=== PATIENT | male | born 1980 | race Caucasian/White ===

== ENCOUNTER 2016-06-06 20:00 | Inpatient (IN) | payer MEDICARE, OTHER ==
--- NOTE | ~2016-06-06 | DS ---
Unit #: [id number] #: [id number] Patient: [facility]ANNER STEPHENSON [id number] [facility] [address] [place] [address] [id number] I MR#: [id number] NAME: TANNER STEPHENSON ROOM: P131 Age: 35 Sex: M Admission Date: 06/06/2016 : 1980 Discharge Date: 06/16/2016 Attending Physician: Joanna Escalante M.D. Primary Care Physician: Liza Richards M.D. DISCHARGE SUMMARY IDENTIFYING DATA Mr. Stephenson is a 35-year-old single disabled white male, who is a resident of [place], [place], and is known to us from previous encounter, was brought to the hospital accompanied by his mother. DISCHARGE DIAGNOSES Psychiatric: Schizoaffective disorder, bipolar type, most recent episode depressed, recurrent, moderate, without psychotic features. Medical: Hypertension and dyslipidemia. Stressors: Moderate psychosocial stressors. HISTORY OF PRESENT ILLNESS Please see initial psychiatric evaluation for details. PAST PSYCHIATRIC HISTORY Please see initial psychiatric evaluation for details. PAST MEDICAL HISTORY Please see initial psychiatric evaluation for details. HOSPITAL COURSE The patient was admitted to the adult psychiatric unit at [facility] br[facility] and was oriented to the hospital environment. Routine p.r.n. medications were initiated, and he was started back on his home medications and was closely monitored. He was initially seen to be withdrawn, anxious, and rather not functioning very well; however, he was polite and pleasant and cooperative with treatment recommendation and was taking the medications regularly and was tolerating them fairly well and was able to show a decent and therapeutic response with improvement in psychosis and as such, it was decided that he will be discharged home and will continue treatment on an outpatient basis. DISCHARGE MEDICATIONS Zyprexa 20 mg at bedtime and 10 mg in the morning for psychosis, Celexa 30 mg in the morning for depression, Remeron 15 mg at bedtime for depression, Lipitor 10 mg a day for dyslipidemia, Zestril 10 mg b.i.d. for hypertension, Protonix 40 mg a day for acid reflux, Glucophage 500 mg b.i.d. for diabetes. DISCHARGE CONDITION Stable. PROGNOSIS Unit #: [id number] #: [id number] Patient: TANNER STEPHENSON Fair. Dictated by... Irena Holman/jayden TD: 06/16/2016 23:28 JOB #: [id number] DISCHARGE SUMMARY Page 1 of 1 X Joanna Escalante MD DISCHARGE SUMMARY
--- NOTE | ~2016-06-06 | PN ---
Unit #: [id number] #: [id number] Patient: TANNER STEPHENSON [id number] [facility] [address] [place] [address] [id number] I MR#: [id number] NAME: TANNER STEPHENSON ROOM: 32 Age: 35 Sex: M Admission Date: 06/06/2016 : 1980 Attending Physician: Joanna Escalante M.D. Admitting Physician: Joanna Escalante M.D. Primary Care Physician: Irena Pantoja PROGRESS NOTES DATE 06/10/2016 DISCUSSION Mr. Stephenson is a 35-year-old white male who was seen today and chart was reviewed and case was discussed with the staff. He has been anxious, withdrawn and seclusive to himself. Meanwhile, he has been cooperative with treatment recommendations and has been taking medications and tolerating them fairly well. MENTAL STATUS EXAMINATION Young white male who was casually dressed with fair personal hygiene and appears to be in no acute distress or discomfort. He was awake and alert on interaction with intact orientation. His mood was anxious with congruent affect. He denies any suicidal or homicidal ideation. His insight and judgement remains slightly impaired. TREATMENT PLAN 1. Will continue on his current medications and treatment protocol. Will monitor his response to the medications and make further adjustments as needed. 2. Will continue to follow up. Dictated by... Joanna Escalante M.D. IAA/olive TD: 06/10/2016 17:44 JOB #: [id number] Unit #: [id number] #: [id number] Patient: TANNER STEPHENSON COLEENBECCA PROGRESS NOTES Page 1 of 1 X Joanna Escalante MD PROGRESS NOTE
--- NOTE | ~2016-06-06 | PN ---
Unit #: [id number] #: [id number] Patient: TANNER STEPHENSON [id number] [facility] [address] [place] [address] [id number] I MR#: [id number] NAME: TANNER STEPHENSON ROOM: 31 Age: 35 Sex: M Admission Date: 06/06/2016 : 1980 Attending Physician: Joanna Escalante M.D. Admitting Physician: Joanna Escalante M.D. Primary Care Physician: Irena Pantoja PROGRESS NOTES DATE 06/11/2016 DISCUSSION Mr. Stephenson is a 35-year-old white male who was seen today and chart was reviewed. His case was discussed with the staff. He remains withdrawn, anxious and rather seclusive to himself. Meanwhile, he has been cooperative with treatment recommendations and has been taking medications and tolerating them fairly well with no reported side effects. MENTAL STATUS EXAMINATION Middle-age white male who was casually dressed with fair personal hygiene and appears to be in no acute distress or discomfort. He was awake and alert on interaction with intact orientation. His mood was anxious with a congruent affect, but he denies any suicidal or homicidal ideation. His insight and judgment remains slightly impaired. TREATMENT PLAN 1. We will continue on his current medications and treatment protocol. Will monitor his response to the medications and make further adjustments as needed. 2. We will continue to follow up. Dictated by... Joanna Escalante M.D. IAA/jairo TD: 06/12/2016 15:43 JOB #: [id number] Unit #: [id number] #: [id number] Patient: TANNER STEPHENSON COLEENBECCA PROGRESS NOTES Page 1 of 1 X Joanna Escalante MD PROGRESS NOTE
--- NOTE | ~2016-06-06 | CO ---
Unit #: [id number] #: [id number] Patient: NITO DAS [id number] [place] [address] [id number] I MR#: [id number] NAME: NITO DAS ROOM: [facility] Age: 35 Sex: M Admission Date: 06/06/2016 : 1980 Attending Physician: Joanna Escalante M.D. Primary Care Physician: Liza Richards M.D. Consultation Date: 06/13/2016 CONSULTATION REPORT SUBJECTIVE Nito is a 35-year-old who was admitted with urinary glucose greater than 1000 and a fasting blood sugar of 152. On admission, he gave no prior history of diabetes mellitus. We have been asked to assess and treat. He denies any polyuria or polydipsia. There is no known family history of diabetes. OBJECTIVE GENERAL: Alert, morbidly obese, no apparent distress. VITAL SIGNS: Blood pressure 120/88, heart rate 80, respirations 16, temperature 98.6, weight 213, height 5 feet 6 inches. CARDIOVASCULAR: Rate and rhythm is regular. CHEST: Lungs clear. EXTREMITIES: No edema. DIAGNOSTIC STUDIES Admission labs glucose 152 (fasting), BUN/creatinine 12/0.9. Urine glucose greater than 1000. ASSESSMENT Diabetes mellitus. PLAN Glucophage 500 mg one p.o. b.i.d. The patient needs to follow up with primary care. Dictated by... Brenna Kidd P.A.-C. for Irena Mckeon/jayden TD: 06/18/2016 01:11 JOB #: [id number] Unit #: [id number] #: [id number] Patient: NITO DAS CONSULTATION REPORT Page 1 of 1 X Brenna Kidd CONSULTATION REPORT
--- NOTE | ~2016-06-06 | PN ---
Unit #: [id number] #: [id number] Patient: TANNER STEPHENSON [id number] [facility] [address] [place] [address] [id number] I MR#: [id number] NAME: TANNER STEPHENSON ROOM: [facility] Age: 35 Sex: M Admission Date: 06/06/2016 : 1980 Attending Physician: Joanna Escalante M.D. Admitting Physician: Joanna Escalante M.D. Primary Care Physician: Irena Pantoja PROGRESS NOTES DATE OF SERVICE 06/15/2016 DISCUSSION Mr. Stephenson is a 35-year-old white male who was seen today. Chart was reviewed and case was discussed with the staff. He has been anxious, withdrawn, and seclusive to himself though has not shown any agitation or aggression. Meanwhile, he has been compliant with the treatment recommendations and has been taking the medications and tolerating them fairly well with no reported side effects. MENTAL STATUS EXAMINATION Young white male who is casually dressed with fair personal hygiene, appears to be in no acute distress or discomfort. He was awake and alert with impaired attention and concentration. His mood is anxious with congruent affect. His speech is slow and restricted in content. He denies any suicidal or homicidal ideations. His insight and judgment remain slightly impaired. TREATMENT PLAN 1. We will continue him on his current medications and treatment protocol, and we will monitor his response to the medications and make further adjustments as needed. 2. We will continue to follow up. Dictated by... Irena Holman/nitza TD: 06/15/2016 12:44 JOB #: [id number] Unit #: [id number] #: [id number] Patient: ATNNER STEPHENSON PROGRESS NOTES Page 1 of 1 X Joanna Escalante MD PROGRESS NOTE
--- NOTE | ~2016-06-06 | A ---
[facility] Nutrition Therapy DATE: 06/13/16 Patient: TANNER DAS Physician: AFAIRF Address: [address] Room/Bed: [address], Zip: [place] [address] Admit Date: 06/06/16 Date of : [birth year] Height: 5 6 Weight: [phone] NUTRITIONAL ASSESSMENT: REASON: CONSULT "D/T URINARY GLUCOSE OF >1000" PATIENT ADMITTED FOR AUDITORY HALLUCINATIONS, DEPRESSION, SI PMH: MORBID OBESITY, HTN, HLD, COGNITIVE IMPAIRMENT, CHRONIC MENTAL ILLNESS Anthropometrics: HT: 5'6", WT: 213#, BMI: 34.4 Labs: 06/07/16- GLU: 152, ALL OTHER NUTRITION LABS WNL Meds: ZYPREXA, REMERON, VITAMIN D, CELEXA, ZESTRIL Assessment: PATIENT IS A 35 Y/O MALE ADMITTED FOR AUDITORY HALLUCINATIONS, DEPRESSION, AND SI. PATIENT IS CURRENTLY EMPLOYED [employer], LIVES AT A RESIDENTIAL FACILITY, AND DENIES SUBSTANCE ABUSE. PER NEEDS ASSESSMENT, PATIENT STATED A GOOD APPETITE WITH NO RECENT WEIGHT CHANGES. WEIGHT HX PER [employer] SHOWS A 143 WEIGHT GAIN X 1 YEAR. NURSING REPORTS GOOD PO INTAKES. PATIENT HAS A HX OF INPATIENT PSYCH HOSPITALIZATIONS AND HE HAS A DX OF COGNITIVE IMPARIMENT. PATIENT'S GLUCOSE ON 06/07/16 WAS 152, WHICH IS ABOVE THE NORMAL RANGE. PATIENT DOES NOT HAVE A HX OF DIABETES. PATIENT'S DIET WAS CHANGED TO CC FROM REGULAR. THERE ARE NO SKIN OR GI ISSUES NOTED ATT. Dx: ALTERED NUTRIENT NEEDS R/T CURRENT CONDITION AEB NEED FOR THERAPEUTIC DIET Intervention: CC DIET, MEDS PER MD, PSYCH Monitoring, Evaluation and Goals: 1. ADEQUATE PO INTAKES >50% OF MEALS 2. PREVENT, CORRECT MICRO/MACRO NUTRIENT DEFICIENCIES MONITOR: WEIGHTS, LABS, PO/FLUID INTAKES, GLUCOSE LEVELS Recommendations: 1. CONTINUE CC DIET TOLERATED 2. CONSULT MD D/T URINARY GLUCOSE AND FOR DIAGNOSES. PATIENT DOES NOT CURRENTLY HAVE A DX OF DIABETES. 3. CONSULT RD WITH ANY FURTHER NUTRITION QUESTIONS OR CONCERNS RD TO F/U PER PROTOCOL AND PRN R/T PATIENT MILDLY COMPROMISED [facility] Nutrition Therapy DATE: 06/13/16 Patient: TANNER DAS Physician: AFAIRF Address: [address] Room/Bed: P131-1 City, [facility], Zip: [place] [address] Admit Date: 06/06/16 Date of : [birth year] Height: 5 6 Weight: [phone] Respectfully, CHICO BATEMAN RD, LD [employer] [facility] [employer] cc: client file
--- NOTE | ~2016-06-06 | PN ---
Unit #: [id number] #: [id number] Patient: TANNER STEPHENSON [id number] [facility] [address] [place] [address] [id number] I MR#: [id number] NAME: TANNER STEPHENSON ROOM: 31 Age: 35 Sex: M Admission Date: 06/06/2016 : 1980 Attending Physician: Joanna Escalante M.D. Admitting Physician: Joanna Escalante M.D. Primary Care Physician: Irena Pantoja PROGRESS NOTES DATE June 13, 2016 DISCUSSION Mr. Stephenson is a 35-year-old white male, who was seen today and chart was reviewed and the case was discussed with the staff. He has been anxious, withdrawn, and rather seclusive to himself. Meanwhile, he has been cooperative with the treatment recommendations and he has been taking the medications and tolerating them fairly well. MENTAL STATUS EXAMINATION Young white male, who was casually dressed with fair personal hygiene and appears to be in no acute distress or discomfort. He was awake and alert on interaction with intact orientation. His mood is anxious with a congruent affect. His speech is slow and goal-directed. He denies any suicidal or homicidal ideations. His insight and judgment remain slightly impaired. TREATMENT PLAN 1. We will continue him on his current medications and treatment protocol, and will monitor his response to the medications, and make further adjustments as needed. 2. We will continue to followup. Dictated by... Irena Holman/chaz TD: 06/14/2016 05:35 JOB #: [id number] Unit #: [id number] #: [id number] Patient: TANNER STEPHENSON PROGRESS NOTES Page 1 of 1 X Joanna Escalante MD PROGRESS NOTE
--- NOTE | ~2016-06-06 | PN ---
Unit #: [id number] #: [id number] Patient: TANNER STEPHENSON [id number] [facility] [address] [place] [address] [id number] I MR#: [id number] NAME: TANNER STEPHENSON ROOM: 32 Age: 35 Sex: M Admission Date: 06/06/2016 : 1980 Attending Physician: Joanna Escalante M.D. Admitting Physician: Joanna Escalante M.D. Primary Care Physician: Irena Pantoja PROGRESS NOTES DATE June 08, 2016 DISCUSSION Mr. Stephenson is a 35-year-old white male, who was seen today and chart was reviewed and the case was discussed with the staff. He has been anxious, withdrawn, and rather seclusive to himself. Meanwhile, he has been cooperative with the treatment recommendations and he has been taking the medications and tolerating them fairly well with o reported side effects. MENTAL STATUS EXAMINATION Young white male, who was casually dressed with fair personal hygiene and appears to be in no acute distress or discomfort. He was awake and alert on interaction with intact orientation. His mood was anxious with a congruent affect. He denies any suicidal or homicidal ideations. His insight and judgment remain slightly impaired. TREATMENT PLAN 1. We will continue him on his current medications and treatment protocol, and will monitor his response to the medications, and make further adjustments as needed. 2. We will continue to followup. Dictated by... Irena Holman/chaz TD: 06/08/2016 08:26 JOB #: [id number] Unit #: [id number] #: [id number] Patient: TANNER STEPHENSON PROGRESS NOTES Page 1 of 1 X Joanna Escalante MD X PROGRESS NOTE
--- NOTE | ~2016-06-06 | PA ---
Unit #: [id number] #: [id number] Patient: [facility]NER STEPHENSON [id number] [facility] [place] [place] [address] [id number] I MR#: [id number] NAME: TANNER STEPHENSON ROOM: P132 Age: 35 Sex: M Admission Date: 06/06/2016 : 1980 Date of Assessment: 06/07/2016 Attending Physician: Joanna Escalante M.D. Admitting Physician: Joanna Escalante M.D. Primary Care Physician: Liza Richards M.D. PSYCHIATRIC ASSESSMENT DATE OF SERVICE 06/07/2016. IDENTIFYING DATA Mr. Stephenson is a 35-year-old, single, disabled, white male, who is a resident of [place], [place] and is known to us from previous encounter, who was brought to the hospital accompanied by his mother. CHIEF COMPLAINT "I've been hearing voices." HISTORY OF PRESENT ILLNESS Mr. Stephenson is a 35-year-old white male with a long history of chronic mental illness and cognitive impairment, who was brought to the hospital accompanied by his mother and upon presentation, the patient stated that he has been hearing voices. "They have been plaguing me since this evening. I've been stressed out about stuff about world, voices have been telling me to kill myself. They want me to hang myself. I've been fighting them like crazy, it is not easy, but I'm fighting them." The patient does report increasing depression, anxiety, and reports that he has been employed at [employer] and stated that he has worked there for over a year and he is living in a residential facility called [facility] and the patient reports that he has supportive relationships at this facility and stated that he has been there since 05/2014 and is currently on disability and reports multiple supportive relationships including his mother and the staff at the residential facility and does endorse decompensating on his mood at this time with increasing depression, anxiety, poor energy level, psychomotor retardation, command auditory hallucinations and feelings of hopelessness and helplessness, and suicidal ideation. SUBSTANCE ABUSE HISTORY The patient denies any alcohol or drug abuse. PAST PSYCHIATRIC HISTORY The patient has [facility] a [facility] and outpatient psychiatric treatment through [facility], and review of the medical records indicate that he has been diagnosed and treated for mood disorder with psychosis and is currently on a combination of Remeron, Celexa and Zyprexa as well and Geodon. PAST MEDICAL HISTORY Unit #: [id number] #: [id number] Patient: TANNER STEPHENSON The patient's medical history is significant for hypertension and dyslipidemia. ALLERGIES No known medication allergies. PERSONAL AND SOCIAL HISTORY A 35-year-old white male, who reports that he is single and employed, lives in a residential facility and has fairly decent social support system. MENTAL STATUS EXAMINATION Young white male, who was casually dressed with fair personal hygiene, appears to be in no acute distress or discomfort. He was awake and alert on interaction with intact orientation to time, place, and person. His mood was anxious and depressed with congruent affect. Speech was slow and restricted in content. His thought processes were disorganized with some looseness of associations and flight of ideas and suicidal ideations. His insight and judgment remain significantly impaired. DIAGNOSTIC IMPRESSION Psychiatric: Schizoaffective disorder, bipolar type, most recent episode depressed, recurrent, moderate, with psychosis. Medical: Hypertension and dyslipidemia. Stressors: Moderate psychosocial stressors. TREATMENT PLAN 1. The patient has presented with a history of mood disorder and has been decompensating and will need inpatient hospitalization for safety and stabilization. We will start him back on his home medications. We will adjust the medications and monitor response. 2. Supportive therapy was provided to the patient. 3. Safe, structured, and nourishing environment will be provided. ESTIMATED LENGTH OF STAY 5 to 7 days. ABILITY TO HELP SELF Limited. WILLINGNESS TO HELP SELF The patient appears to be willing to help self. STRENGTHS 1. Communicative. 2. Cooperative. PROBLEMS 1. Chronic dysphoric symptoms. 2. Poor social support system. DISCHARGE CRITERIA This will be contingent upon the patient's ability to show resolution of his depression and psychosis and his ability to stay safe to himself, particularly after discharge from the hospital. Unit #: [id number] #: [id number] Patient: TANNER STEPHENSON Dictated by... Irena Holman/jayden TD: 06/07/2016 08:18 JOB #: [id number] PSYCHIATRIC ASSESSMENT Page 1 of 1 X Joanna Escalante MD PSYCHIATRIC ASSESSMENT
--- NOTE | ~2016-06-06 | HP ---
Unit #: [id number] #: [id number] Patient: NITO DAS [id number] [place] [address] [id number] I MR#: [id number] NAME: NITO DAS ROOM: 32 Age: 35 Sex: M Admission Date: 06/06/2016 : 1980 Attending Physician: Joanna Escalante M.D. Admitting Physician: Joanna Escalante M.D. Primary Care Physician: Liza Richards M.D. HISTORY AND PHYSICAL HISTORY OF PRESENT ILLNESS Nito is a 35 year old, admitted to [address] [place] [address] with depression and verbalizing wanting to hurt himself. PAST MEDICAL HISTORY 1. Morbid obesity. 2. High blood pressure. 3. Hyperlipidemia. 4. History of kidney stones. PAST SURGICAL HISTORY Nothing reported. ALLERGIES No known drug allergies. SOCIAL HISTORY He smokes one pack per day, denies alcohol, and illicit drug use. FAMILY HISTORY Medically noncontributory. REVIEW OF SYSTEMS CONSTITUTIONAL: No fever or chills. HEENT: Denies any sore throat, ear pain or runny nose. CARDIOVASCULAR: Denies chest pain, irregular heart rhythm or palpitations. CHEST: Denies shortness of breath or cough. No hemoptysis. GASTROINTESTINAL: Denies nausea, vomiting, diarrhea or chronic constipation. ENDOCRINE: Denies history of increased thirst or urination. No recent significant weight loss or gain. GENITOURINARY: Denies dysuria, frequency, or hematuria. SKIN: Denies any rashes. HEMATOLOGIC: Denies history of increased bleeding or bruising. MUSCULOSKELETAL: Denies any hot, swollen joints. No generalized muscle pain. NEUROLOGIC: Denies problems with vision or speech. No frequent, severe headaches. No numbness, tingling or weakness in any extremities. Denies loss of bladder or bowel control. CURRENT MEDICATIONS 1. Zyprexa 10 mg q.a.m., 20 mg q.h.s. 2. Remeron 15 mg q.h.s. Unit #: [id number] #: [id number] Patient: NITO DAS 3. Lipitor 10 mg q.h.s. 4. Claritin 10 mg daily 5. Vitamin D 2000 units daily 6. Protonix 40 mg daily 7. Zestril 10 mg b.i.d. 8. Celexa 30 mg daily 9. Protonix 40 mg daily 10. Milk of magnesia p.r.n. 11. Maalox p.r.n. 12. Tylenol p.r.n. PHYSICAL EXAMINATION GENERAL: Alert, well-nourished, no apparent distress. VITAL SIGNS: Blood pressure 132/90, heart rate 96, respirations 16, and temperature 98.6. WEIGHT: 213 pounds HEIGHT: 5 feet 6 inches. SKIN: Warm and dry without rash or lesion. HEENT: Normocephalic. TMs not viewed. Oral and nasal passages clear. Conjunctivae clear. PERRLA. EOMs intact. NECK: Supple without lymphadenopathy or thyromegaly. HEART: Regular rate and rhythm without murmur. LUNGS: Clear. ABDOMEN: Soft, nontender. : Not done. EXTREMITIES: No evidence of cyanosis, clubbing or edema. Moves all without focal deficit. NEUROLOGICAL: Grossly within normal limits. Cranial Nerves: II: Visual juarez are intact. III, IV AND : Extraocular movements are intact. Pupils are equal, round and reactive to light. V: Facial sensation is grossly normal. VII: Facial movements and expression are normal. VIII: Auditory acuity grossly intact. IX, X: Uvula is midline. Phonation is normal. XI: Patient shrugs shoulders and turns head normally. XII: Tongue protrudes in the midline. Sensory and Motor Function: Sensory and motor sensation is grossly normal. Motor: moves all extremities well. Coordination: Gait is normal. Deep Tendon Reflexes: Intact. IMPRESSION Psychiatric admission. RECOMMENDATIONS Psychiatric, per psychiatrist. MEDICAL I see no contraindications to participating in facility's activities. MEDICAL PROGNOSIS Good. MEDICAL CONDITION Stable. Dictated by... Brenna Kidd P.A.-C. for Unit #: [id number] #: [id number] Patient: NITO DAS Irena Mckeon/chaz TD: 06/08/2016 12:00 JOB #: [id number] HISTORY AND PHYSICAL Page 1 of 1 X Brenna Kidd X HISTORY AND PHYSICAL
--- NOTE | ~2016-06-06 | PN ---
Unit #: [id number] #: [id number] Patient: TANNER STEPHENSON [id number] [facility] [address] [place] [address] [id number] MR#: [id number] NAME: TANNER STEPHENSON ROOM: 31 Age: 35 Sex: M Admission Date: 06/06/2016 : 1980 Attending Physician: Joanna Escalante M.D. Admitting Physician: Joanna Escalante M.D. Primary Care Physician: Irena Pantoja PROGRESS NOTES DATE 06/14/2016 DISCUSSION Mr. Stephenson is a 35-year-old, white male who was seen today and chart was reviewed and case was discussed with the staff who reports the patient has been anxious, withdrawn and rather seclusive to himself. Meanwhile, he has been cooperative with treatment recommendations. He has been taking medications and tolerating them fairly well with no reported side effects. MENTAL STATUS EXAM Young white male who was casually dressed with fair personal hygiene, appears to be in no acute distress or discomfort. He was awake and alert on interaction with intact orientation. His mood was anxious with congruent affect. He denies any suicidal or homicidal ideation. His insight and judgement remains slightly impaired. TREATMENT PLAN 1. We will continue him on his current medications and treatment protocol. We will monitor his response to the medications and make further adjustments as needed. 2. We will continue to follow up. Dictated by... Irena Holman/edie TD: 06/15/2016 01:04 JOB #: [id number] Unit #: [id number] #: [id number] Patient: TANNER STEPHENSON PROGRESS NOTES Page 1 of 1 X Joanna Escalante MD X PROGRESS NOTE
--- NOTE | ~2016-06-06 | PN ---
Unit #: [id number] #: [id number] Patient: TANNER STEPHENSON [id number] [facility] [address] [place] [address] [id number] MR#: [id number] NAME: TANNER STEPHENSON ROOM: 32 Age: 35 Sex: M Admission Date: 06/06/2016 : 1980 Attending Physician: Joanna Escalante M.D. Admitting Physician: Joanna Escalante M.D. Primary Care Physician: Irena Pantoja PROGRESS NOTES DATE OF SERVICE 06/09/2016 DISCUSSION Mr. Stephenson is a 35-year-old white male who was seen today. Chart was reviewed and case was discussed with the staff. He has been anxious, withdrawn, and rather seclusive to himself but has not shown any agitation or aggression. Meanwhile, he has been compliant with the treatment recommendations and has been taking the medications and tolerating them fairly well with no reported side effects. MENTAL STATUS EXAMINATION Young white male who is casually dressed with fair personal hygiene and appears to be in no acute distress or discomfort. The patient was awake and alert on interaction with intact orientation. His mood is anxious with a congruent affect. He denies any suicidal or homicidal ideations. His insight and judgment remain slightly impaired. TREATMENT PLAN 1. We will continue him on his current medications and treatment protocol. We will monitor his response to the medications and make further adjustments as needed. 2. We will continue to follow up. Dictated by... Irena Holman/nitza TD: 06/09/2016 10:04 JOB #: [id number] Unit #: [id number] #: [id number] Patient: TANNER STEPHENSON NOELLE PROGRESS NOTES Page 1 of 1 X Joanna Escalante MD PROGRESS NOTE
--- NOTE | ~2016-06-06 | PN ---
Unit #: [id number] #: [id number] Patient: TANNER STEPHENSON [id number] [facility] [address] [place] [address] [id number] MR#: [id number] NAME: TANNER STEPHENSON ROOM: [facility] Age: 35 Sex: M Admission Date: 06/06/2016 : 1980 Attending Physician: Joanna Escalante M.D. Admitting Physician: Joanna Escalante M.D. Primary Care Physician: Irena Pantoja PROGRESS NOTES DATE June 12, 2016 DISCUSSION Mr. Stephenson is a 35-year-old white male, who was seen today and chart was reviewed and the case was discussed with the staff. He has been anxious, withdrawn, and rather seclusive to himself. Meanwhile, he has been cooperative with the treatment recommendations and he has been taking the medications and tolerating them fairly well with no reported side effects. MENTAL STATUS EXAMINATION Young white male, who was casually dressed with fair personal hygiene and appears to be in no acute distress or discomfort. He was awake and alert on interaction with intact orientation. His mood is anxious with a congruent affect. He denies any suicidal or homicidal ideations, and also denies any auditory or visual hallucinations. His insight and judgment remain slightly impaired. TREATMENT PLAN 1. We will continue him on his current medications and treatment protocol, and will monitor his response to the medications, and make further adjustments as needed. 2. We will continue to followup. Dictated by... Irena oHlman/chaz TD: 06/13/2016 11:18 JOB #: [id number] Unit #: [id number] #: [id number] Patient: TANNER STEPHENSON COLEENBECCA PROGRESS NOTES Page 1 of 1 X Joanna Escalante MD PROGRESS NOTE
[~2016-06-06 20:00] MED LIST: FLOMAX0.4 M1 PO; IBUPROFEN800 MG PO; PHENERGAN25 M1 PO
[2016-06-07 09:42] LABS: BASOPHIL% 0.7 % (0-2.5); EOSINOPHIL# 0.1 X10e3 (0-0.7); EOSINOPHIL% 2.1 % (0.0-7.0); LYMPHOCYTE% 30.2 % (17.0-45.0); MEAN CELL VOLUME 78.2 FL (83-96); MEAN CORPUSCULAR HEMOGLOBIN 25.4 PG (28-34); MEAN CORPUSCULAR HGB CONC 32.5 g/dL (30-36); MEAN PLATELET VOLUME 8.6 FL (6.5-11.5); MONOCYTE# 0.4 X10e3 (0-1.0); MONOCYTE% 6.4 % (3.0-12.0); NEUTROPHIL# 4.1 X10e3 (1.5-7.1); NEUTROPHIL% 60.6 % (40-75); PLATELET COUNT 234 X10e3 (140-420); RED BLOOD COUNT 5.51 X10e (3.90-5.60); RED CELL DISTRIBUTION WIDTH 14.1 % (11.0-15.5); WHITE BLOOD COUNT 6.8 X10e3 (4.0-10.5)
[2016-06-07 09:43] LABS: ALBUMIN SERUM 4.1 g/dL (3.5-5.0); BILIRUBIN,TOTAL 0.7 mg/dL (0.2-2.0); BUN/CREATININE RATIO 13.33; CREATININE SERUM 0.9 mg/dL (0.6-1.4); GLOM FILT RATE Estimated 110.3 mL/min (>60); POTASSIUM 4.6 mmol/L (3.5-5.1); PROTEIN TOTAL SERUM 6.4 g/dL (6.0-8.3)
[2016-06-07 09:45] LABS: DIFF IND NO
[2016-06-13 09:51] LABS: URINE APPEARANCE CLEAR; URINE BILIRUBIN NEG (NEG); URINE BLOOD NEG (NEG); URINE COLOR YELLOW; URINE GLUCOSE >1000 MG/DL (NEG); URINE KETONE NEG (NEG); URINE LEUKOCYTE ESTERASE NEG (NEG); URINE NITRATE NEG (NEG); URINE PH 6.5 (5-8); URINE PROTEIN NEG (NEG); URINE SPECIFIC GRAVITY 1.027 (1.003-1.035)
[2016-06-13 10:12] LABS: AMPHETAMINE NEG (NEG); BARBITURATES NEG (NEG); BENZODIAZEPINES NEG (NEG); COCAINE NEG (NEG); MARIJUANA NEG (NEG); OPIATES NEG (NEG); TRICYCLIC ANTIDEPRESSANTS NEG (NEG); U METHADONE NEG (NEG)
== END 2016-06-16 11:14 | disposition home or self-care (01) | DRG 885 ==
LOC: P1S 22:09
PROVIDERS: Psychiatry & Neurology Psychiatry
DX: F31.5 Bipolar disorder, current episode depressed, severe, with psychotic features (principal); E66.01 Morbid (severe) obesity due to excess calories; I10 Essential (primary) hypertension; E78.5 Hyperlipidemia, unspecified; Z87.442 Personal history of urinary calculi; F17.210 Nicotine dependence, cigarettes, uncomplicated; Z68.34 Body mass index [BMI] 34.0-34.9, adult
CPT/HCPCS: 80053; 80307; 81003; 82947; 85025

== ENCOUNTER 2016-07-19 09:26 | Emergency (ER) | payer MEDICARE, OTHER ==
--- NOTE | ~2016-07-19 | CR21 ---
[facility]. [facility] A Service of [facility] & [facility] RADIOLOGY TEXT RESULTS PATIENT: TANNER DAS LOCATION: SED : [birth year] UNIT #: [id number] AGE: [address]: Mark Price MD SEX: M ORDER DR: [id number] [place] [id number] MR#: [id number] Acc #: [id number] NAME: TANNER DAS : 1980 SEX: M STUDY DATE/TIME: 07/19/2016 9:54 UNIT: SED ROOM: STUDY DESCRIPTION: CR Ankle Min 3 Views Rt Attending Physician: Mark Price M.D. Ordering Physician: Mark Price M.D. Primary Care Physician: Liza Richards M.D. MEDICAL IMAGING REPORT This report is preliminary unless electronic signature is present. EXAM Right ankle 07/19. INDICATIONS Pain and swelling after landing on foot wrong last night. FINDINGS 3 views of the right ankle were obtained. No fracture or malalignment is seen. The mortise is intact. The soft tissues are unremarkable. IMPRESSION Negative right ankle. Dictated by... Ed Brown Jr., M.D. THIS IS AN ELECTRONICALLY VERIFIED REPORT Ed Brown Jr., M.D. at 07/19/2016 4:56 PM ASHLEY/willa TD: 07/19/2016 12:28 JOB #: [id number] MEDICAL IMAGING REPORT Page 1 of 1
--- NOTE | ~2016-07-19 | CR127 ---
[facility] A Service of [facility] & [facility] RADIOLOGY TEXT RESULTS PATIENT: TANNER DAS LOCATION: SED : [birth year] UNIT #: [id number] AGE: [address]: Mark Price MD SEX: M ORDER DR: [id number] [place] [address] [id number] MR#: [id number] Acc #: [id number] NAME: TANNER DAS : 1980 SEX: M STUDY DATE/TIME: 07/19/2016 9:54 UNIT: SED ROOM: STUDY DESCRIPTION: CR Foot Complete Min 3 View Rt Attending Physician: Mark Price M.D. Ordering Physician: Mark Price M.D. Primary Care Physician: Liza Richards M.D. MEDICAL IMAGING REPORT This report is preliminary unless electronic signature is present. EXAM Right foot 07/19/2016 INDICATION Foot pain and swelling after jumping and landing wrong last night. FINDINGS 3 views of the right foot were obtained. There is a fracture across the neck of the fifth metatarsal. There is slight angulation but no displacement. No other fractures are seen. The remainder of the foot is within normal limits. IMPRESSION Nondisplaced and minimally angulated fracture of the fifth metatarsal neck. Dictated by... Ed Brown Jr., M.D. THIS IS AN ELECTRONICALLY VERIFIED REPORT Ed Brown Jr., M.D. at 07/19/2016 4:56 PM ASHLEY/justice TD: 07/19/2016 12:45 JOB #: [id number] MEDICAL IMAGING REPORT Page 1 of 1
[2016-07-19] MEDS ORDERED: METFORMIN (09:34)
[2016-07-19] MEDS ORDERED: LIPITOR20 MG (09:34)
[2016-07-19] MEDS ORDERED: ZYPREXA (09:34)
[2016-07-19] MEDS ORDERED: CELEXA (09:34)
[2016-07-19] MEDS ORDERED: "\\\"BLOOD PRESSURE MED\\\"" (09:35)
== END 2016-07-19 10:35 | disposition home or self-care (01) ==
LOC: SED 09:26
DX: S92.354A Nondisplaced fracture of fifth metatarsal bone, right foot, initial encounter for closed fracture (principal); E11.9 Type 2 diabetes mellitus without complications; X50.1XXA Overexertion from prolonged static or awkward postures, initial encounter; Y93.39 Activity, other involving climbing, rappelling and jumping off; Y92.009 Unspecified place in unspecified non-institutional (private) residence as the place of occurrence of the external cause
CPT/HCPCS: 29515; 73610; 73630; 99283